=== PATIENT | female | born 1965 | race Caucasian/White ===

== ENCOUNTER → 2017-06-30 | Outpatient (REF) | payer OTHER ==
[2017-06-30 19:11] LABS: LUTEINIZING HORMONE 4.9 mIU/mL
[2017-06-30 19:12] LABS: FOLLICLE STIMULATING HORMONE 6.6 mIU/mL
== END ==
LOC: M LAB REF 17:20
PROVIDERS: ATTEND Family Medicine
DX: N94.6 Dysmenorrhea, unspecified (principal)

== ENCOUNTER → 2017-12-28 | Outpatient (REF) | payer OTHER ==
[2017-12-28 13:50] LABS: LIPASE 72 U/L (73-393)
[2017-12-28 13:50] LABS: AMYLASE 39 U/L (25-115)
== END ==
LOC: M LAB REF 12:45
DX: R10.812 Left upper quadrant abdominal tenderness (principal)
CPT/HCPCS: 82150

== ENCOUNTER → 2018-01-04 | Outpatient (REF) | payer OTHER ==
[2018-01-04 15:38] LABS: APPEARANCE, URINE MANUAL HAZY (CLEAR); COLOR, URINE MANUAL YELLOW (YELLOW)
[2018-01-04 15:40] LABS: BILIRUBIN, URINE MANUAL NEGATIVE (NEGATIVE); BLOOD URINE MANUAL TRACE (NEGATIVE); GLUCOSE, URINE (UA) MANUAL NEGATIVE (NEGATIVE); KETONE, URINE MANUAL NEGATIVE (NEGATIVE); LEUKOCYTE ESTERASE, URINE MAN POSITIVE (NEGATIVE); MICROSCOPIC INDICATED? MAN YES (NO); NITRITE, URINE MANUAL NEGATIVE (NEGATIVE); PROTEIN, URINE MANUAL TRACE mg/dL (NEGATIVE); UROBILINOGEN, URINE MANUAL NORMAL (NORMAL)
== END ==
LOC: M LAB REF 15:05
DX: R31.9 Hematuria, unspecified (principal)
CPT/HCPCS: 81000

== ENCOUNTER → 2018-03-23 | Outpatient (REF) | payer OTHER ==
[2018-03-23 16:26] LABS: FOLLICLE STIMULATING HORMONE 16.5 mIU/mL; LUTEINIZING HORMONE 12.6 mIU/mL
== END ==
LOC: M LABDRAW1 15:48
DX: N91.4 Secondary oligomenorrhea (principal)
CPT/HCPCS: 83001

== ENCOUNTER → 2018-06-12 | Outpatient (CLI) | payer OTHER | LOC: M RAD 15:05 | DX: M79.675 Pain in left toe(s) (principal) | CPT/HCPCS: 73660 ==

== ENCOUNTER 2020-05-23 14:38 | Observation (INO) | payer OTHER ==
[~2020-05-23] VITALS: Ht 162.6 cm; Wt 79.2 kg
--- NOTE | 2020-05-23 15:34 | REPVR ---
PROCEDURE INFORMATION: Exam: CT Head Without Contrast Exam date and time: 05/23/2020 3:17 PM Age: 54 years old Clinical indication: Pain; Headache; Additional info: Syncope TECHNIQUE: Imaging protocol: Computed tomography of the head without contrast. Radiation optimization: All CT scans at this facility use at least one of these dose optimization techniques: automated exposure control; mA and/or kV adjustment per patient size (includes targeted exams where dose is matched to clinical indication); or iterative reconstruction. COMPARISON: No relevant prior studies available. FINDINGS: Brain: No acute intracranial hemorrhage, cerebral edema, or midline shift. Ventricles: No hydrocephalus. Bones/joints: No acute fracture. Sinuses: No acute sinusitis. Mastoid air cells: Visualized mastoid air cells are well aerated. Orbits: The included orbital structures are unremarkable. Soft tissues: A large right parietal scalp hematoma is present. IMPRESSION: No acute intracranial abnormality. Electronically signed by: Clint Singer On 05/23/2020 15:33:49 PM
--- NOTE | 2020-05-23 15:36 | REPVR ---
PROCEDURE INFORMATION: Exam: CT Cervical Spine Without Contrast Exam date and time: 05/23/2020 3:17 PM Age: 54 years old Clinical indication: Neck pain; Additional info: Syncope TECHNIQUE: Imaging protocol: Computed tomography images of the cervical spine without contrast. Radiation optimization: All CT scans at this facility use at least one of these dose optimization techniques: automated exposure control; mA and/or kV adjustment per patient size (includes targeted exams where dose is matched to clinical indication); or iterative reconstruction. COMPARISON: No relevant prior studies available. FINDINGS: Vertebrae: There is mild reversal of the normal cervical lordosis. There is no acute fracture. Discs/Spinal canal/Neural foramina: Mild degenerative changes are present. There is no significant spinal canal stenosis. Mild bilateral neural foraminal narrowing is present at C5-C6 due to uncinate spurring. Soft tissues: Unremarkable. Lungs: Lung apices are normal. IMPRESSION: 1. No acute abnormality. 2. Chronic findings as discussed above. Electronically signed by: Clint Singer On 05/23/2020 15:36:49 PM
[2020-05-23 16:14] LABS: BASO % 0.3 % (0.0-1.0); EOS % 0.3 % (0.0-3.0); HEMATOCRIT 39.7 % (36.0-47.0); HEMOGLOBIN 13.5 g/dl (12.0-15.5); LYMPH % 14.2 % (24.0-44.0); MEAN CORPUSCULAR HEMOGLOBIN 33.2 pg (27.0-33.0); MEAN CORPUSCULAR VOLUME 97.5 fl (80.0-96.0); MONO # 0.5 10^3/uL (0.0-0.8); MONO % 6.9 % (0.0-5.0); NEUTROPHILS # 5.7 10^3/uL (1.5-8.5); NEUTROPHILS % 77.9 % (36.0-66.0); PLATELET COUNT, AUTOMATED 252 10^3/uL (150-450); RED BLOOD COUNT 4.07 10^6/uL (4.00-5.40); WHITE BLOOD COUNT 7.3 10^3/uL (4.0-10.0)
[2020-05-23] MEDS ORDERED: KETOROLAC 30 MG/ML 1ML VIAL IV ONE (16:45)
[2020-05-23 16:51] LABS: ALBUMIN 4.1 GM/DL (3.2-5.2); ALT/SGPT 24 U/L (12-78); BILIRUBIN,TOTAL 0.3 MG/DL (0.2-1.0); BLOOD UREA NITROGEN 12 MG/DL (7-18); CALCIUM LEVEL 9.3 MG/DL (8.5-10.1); CARBON DIOXIDE LEVEL 29 MEQ/L (21-32); CHLORIDE LEVEL 102 MEQ/L (98-107); CPK CREATINE PHOSPHOKINASE 138 U/L (26-192); CREATININE FOR GFR 0.81 MG/DL (0.55-1.30); GLOMERULAR FILTRATION RATE > 60.0 (>51); GLUCOSE, FASTING 90 MG/DL (70-100); MB/CK RELATIVE INDEX 1.45 (< OR =4); POTASSIUM SERUM 4.1 MEQ/L (3.5-5.1); SODIUM LEVEL 135 MEQ/L (136-145); TOTAL PROTEIN 7.7 GM/DL (6.4-8.2); TROPONIN I < 0.02 NG/ML (< 0.10)
[2020-05-23] MEDS ORDERED: EEG (16:55)
[2020-05-23] MEDS ORDERED: ACETAMINOPHEN TAB 650MG DOSE (2X325MG) PO PRN (17:30)
[2020-05-23] MEDS ORDERED: METOCLOPRAMIDE INJ 10MG/2ML VIAL (J2765 PER 1) IV SCH (17:45)
[2020-05-23] MEDS ORDERED: CENT1TAB7 PO (17:49)
[2020-05-23] MEDS ORDERED: LORA-674 PO (17:49)
[2020-05-23] MEDS ORDERED: BUPR300T92 PO (17:49)
[2020-05-23] MEDS ORDERED: [UNRECOGNIZED DRUG - OTHER] PO (17:49)
[2020-05-23] MEDS ORDERED: CITA20TA6 PO (17:49)
[2020-05-23 18:05] LABS: FREE T4 0.87 NG/DL (0.76-1.46)
[2020-05-23] MEDS ORDERED: LABETALOL 100MG/20ML VIAL IV PRN (18:15)
--- NOTE | 2020-05-23 18:47 | HPEPDOC ---
General Date of Admission 05/23/2020 Date of Service: May 23, 2020 Attending Physician: SOHAM CUNNINGHAM MD Chief Complaint The patient is a 54-year-old female admitted with a reason for visit of ycrani. 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 On EMS arrival SBP was in the 180s, she had a massive occipital headache and was dizzy and she was taken to the ED. In the ED, she is dizzy and nauseous when she tries to sit up from the bed, is hypertensive to SBP 180s, tachycardic to low 110s and is reporting a 10/10 occipital headache that improved after the toradol 15mg IV and icepack to where she has a large hematoma. She reports having eaten lunch, drinks lots of water, does not consume alcohol, cigarettes or take medications at baseline or use illicit drugs. She was otherwise feeling perfectly well prior to this incident and recently had her yearly physical with her PCP (Dr. Ascencio) during which she had no issues and her SBP was ~120 per baseline. In the ED, CBC and BMP were wnl, with WBC 7.3, Hgb 13.5, Na 134, K 4.1, Cr 0.81, had NSR on EKG with negative troponin. TSh was mildly elevated to 5.79, CK was 138, LFTs were wnl and she had a CT head with a parietal scalp hematoma without intracranial abnormalities and CT C-spine was also wnl. I spoke with Dr. Oquendo (neuro) given the mixed picture of possible syncope followed by post- concussive seizure vs. primary seizure activity and he advised a spot EEG and otherwise syncope workup. Home Medications Scheduled Bupropion HCl (Bupropion Xl) 300 Mg Tab.er.24h, 300 MG PO DAILY, (Reported) Citalopram Hydrobromide (Citalopram HBr) 20 Mg Tablet, 30 MG PO DAILY, (Reported) Loratadine (Loratadine) 10 Mg Tablet, 10 MG PO DAILY, (Reported) Multivitamin/Iron/Folic Acid (Centrum Women Tablet) 1 Each Tablet, 1 EACH PO DAILY, (Reported) [t Brain Support] , 1 TAB PO DAILY, (Reported) Allergies Coded Allergies: No Known Drug Allergies (Verified Allergy, Unknown, 05/23/20) Past Medical History Medical History None Surgical History None Family History Significant Family History: No pertinent family hx Social History * Smoker: Denies Alcohol: Denies Drugs: denies Recent Travel/Sick Contacts: Denies: Recent travel, Recent sick contacts 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 A-FIB History Current/History of A-Fib/PAF?: No Current PO Anticoag Therapy: No Age/Risk Factor Scoring CHADSVASC: CHADSVASC Response (Comments) Value Age Risk Factor Age < 65 years old 0 Gender Risk Factor Female 1 Hx of CHF No 0 Hx of HTN No 0 Hx of Stroke/TIA/or VTE No 0 Hx of Diabetes No 0 Hx of Vascular Disease No 0 Total 1 Review of Systems Constitutional: Denies: Chills, Fever, Night Sweats Eyes: Denies: Pain, Vision change ENT: Reports: Head Aches (since she fell to the ground when she fainted.) Skin: Reports: Bruising (under (medial) L arm, occipital area hematoma); Denies: Rash, Lesions Pulmonary: Denies: Dyspnea, Cough Cardiovascular: Reports: Palpitations (since arriving to the hospital, feels that her heart is beating fast. no history of this.); Denies: Chest Pain, Orthopnea, Paroxysmal Noc. Dyspnea, Edema, Lt Headedness Gastrointestinal: Reports: Nausea; Denies: Abdominal Pain, Diarrhea, Constipation, Melena, Hematochezia Genitourinary: Denies: Dysuria, Frequency, Incontinence, Retention Hematologic: Denies: Bruising, Bleeding Excessively Endocrine: Denies: Polydipsia, Polyphagia, Polyuria, Heat Intolerance, Cold Intolerance, Other Endocrine Sx Musculoskeletal: Denies: Neck Pain, Back Pain, Joint Pain, Muscle Pain, Spasms Neurological: Reports: Seizures (had witnessed seizure-like activity today shortly after falling and hitting her head); Denies: Weakness, Numbness, Change in speech, Confusion Psych: Reports: Mood Normal; Denies: Depression, Memory Issues Physical Examination General Exam: Positive: Alert, No Acute Distress Eye Exam: Positive: PERRLA, Conjunctiva & lids normal, EOMI; Negative: Sclera icteric ENT Exam: Positive: Mucous membr. moist/pink, Pharynx Normal, Tongue Midline; Negative: Atraumatic (large occipital scalp hematoma with icepack on) Neck Exam: Positive: Supple; Negative: JVD, +2 carotid pulse wo bruit Chest Exam: Positive: Clear to auscultation, Normal air movement Heart Exam: Positive: Rate Normal, Regular Rhythm, Normal S1, Normal S2; Negative: Murmurs, Rubs Telemetry: Positive: Sinus, Tachycardia Abdomen Exam: Positive: Normal bowel sounds, Soft; Negative: Tenderness, Hepatospenomegaly Extremity Exam: Positive: Normal pulses; Negative: Clubbing, Cyanosis, Edema Skin Exam: Positive: Nl turgor and temperature, Other skin issue (bruising on medial L arm and brusing on back of head); Negative: Breakdown, Lesion Neuro Exam: Positive: Normal Speech, Strength at 5/5 X4 ext, Sensation Intact, Cranial Nerves 3-12 NL Psych Exam: Positive: Mental status NL, Mood NL, Oriented x 3 Vital Signs Vital Signs Date Time Temp Pulse Resp B/P (MAP) Pulse Ox O2 Delivery O2 Flow Rate FiO2 05/23/20 15:40 99.1 101 16 155/67 (96) 100 Room Air Laboratory Data Labs 24H Laboratory Tests 2 05/23/20 16:02: Immature Granulocyte % (Auto) 0.4, Neutrophils (%) (Auto) 77.9H, Lymphocytes (%) (Auto) 14.2L, Monocytes (%) (Auto) 6.9H, Eosinophils (%) (Auto) 0.3, Basophils (%) (Auto) 0.3, Neutrophils # (Auto) 5.7, Lymphocytes # (Auto) 1.0L, Monocytes # (Auto) 0.5, Eosinophils # (Auto) 0.0, Basophils # (Auto) 0.0, Nucleated Red Blood Cells % (auto) 0.0, Anion Gap 4L, Glomerular Filtration Rate > 60.0, Calcium Level 9.3, Total Bilirubin 0.3, Aspartate Amino Transf (AST/SGOT) 20, A lanine Aminotransferase (ALT/SGPT) 24, Alkaline Phosphatase 71, Total Creatine Kinase 138, Creatine Kinase MB 2.0, Creatine Kinase MB Relative Index 1.45, Troponin I < 0.02, Total Protein 7.7, Albumin 4.1, Albumin/Globulin Ratio 1.1L, Thyroid Stimulating Hormone (TSH) 5.790H, Free Thyroxine 0.87 CBC/BMP Laboratory Tests 05/23/20 16:02 Assessment/Plan 54 yo healthy woman whose presentation appears to have been after a possible syncopal episdoe followed by post-concussive seizure vs. primary seizure activity without a clear etiology at this time. Possible Syncope: -telemetry -orthostatic vital signs -non ischemic EKG, negative trop, order TTE -mildly elevated TSH, check free t4 -no electrolyte derangements -carotid ultrasound -q4h neuro checks Primary Seizure vs. post-concussive seizure -spot EEG -on speaking with neuro, no AED for first seizure, will monitor -seizure precautions -CT without acute pathology except for scalp hematoma post fall Post concussive tension headache -reglan 10Q6HP -ketoralac 15mg IV Q6HP -tylenol PRN -ice packs Hypertensive urgency post concussion: likely 2/2 pain -labetalol 10mg IV Q4HP for SBP >180 or DBP >100 DVT ppx: TEDs Diet: regular Plan / VTE VTE Prophylaxis Ordered?: Yes SOHAM CUNNINGHAM MD May 23, 2020 18:47
[2020-05-23 21:55] LABS: CK-MB VALUE MASS 2.6 NG/ML (<3.6); CPK CREATINE PHOSPHOKINASE 236 U/L (26-192); TROPONIN I < 0.02 NG/ML (< 0.10)
[2020-05-23] MEDS: KETOROLAC 30 MG/ML 1ML VIAL IV PRN (22:55)
[2020-05-24] VITALS: BP 141/81
--- NOTE | 2020-05-24 00:42 | REPVR ---
PROCEDURE INFORMATION: Exam: US Duplex Bilateral Extracranial Arteries Exam date and time: 05/23/2020 10:35 PM Age: 54 years old Clinical indication: Syncope and collapse TECHNIQUE: Imaging protocol: Real-time Duplex ultrasound scan of the bilateral carotid and vertebral arteries combining hassan scale, color Doppler and spectral waveform analysis. Bilateral exam. COMPARISON: CT Head without contrast 05/23/2020 3:27 PM FINDINGS: Right common carotid artery: Unremarkable. No occlusion or stenosis. Waveforms are normal. Right internal carotid artery: Mild atherosclerotic calcification of the carotid bulb and proximal internal carotid artery. No occlusion or stenosis. Waveforms are normal. Right ICA/CCA ratio: Within normal limits. Right external carotid artery: No stenosis in the origin. Right vertebral artery: Unremarkable. Antegrade flow. Left common carotid artery: Unremarkable. No occlusion or stenosis. Waveforms are normal. Left internal carotid artery: Mild atherosclerotic calcification of the carotid bulb and proximal internal carotid artery. No occlusion or stenosis. Waveforms are normal. Left ICA/CCA ratio: Within normal limits. Left external carotid artery: No stenosis in the origin. Left vertebral artery: Unremarkable. Antegrade flow. IMPRESSION: No hemodynamically significant carotid arterial stenosis. REFERENCES: SRU CRITERIA. The degree of internal carotid artery stenosis is based on criteria defined by the Society of Radiologists in Ultrasound (SRU). Normal is no stenosis. Mild is less than 50% stenosis. Moderate is 50-69% stenosis. Severe is greater than 69% stenosis to near occlusion. Near occlusion is a markedly narrowed lumen. Total occlusion is no detectable patent lumen. Electronically signed by: Nasir Billy On 05/24/2020 00:42:17 AM
[2020-05-24 04:00] VITALS: BP 139/82
[2020-05-24 05:53] LABS: HEMOGLOBIN 13.1 g/dl (12.0-15.5); MEAN CORPUSCULAR HEMOGLOBIN 32.9 pg (27.0-33.0); MEAN CORPUSCULAR HGB CONC 33.6 g/dl (32.0-36.5); PLATELET COUNT, AUTOMATED 235 10^3/uL (150-450); RED BLOOD COUNT 3.98 10^6/uL (4.00-5.40); WHITE BLOOD COUNT 6.5 10^3/uL (4.0-10.0)
[2020-05-24 06:15] LABS: BLOOD UREA NITROGEN 12 MG/DL (7-18); CALCIUM LEVEL 8.2 MG/DL (8.5-10.1); CARBON DIOXIDE LEVEL 28 MEQ/L (21-32); CHLORIDE LEVEL 104 MEQ/L (98-107); GLOMERULAR FILTRATION RATE > 60.0 (>51); GLUCOSE, FASTING 88 MG/DL (70-100); MAGNESIUM LEVEL 2.4 MG/DL (1.8-2.4); POTASSIUM SERUM 3.7 MEQ/L (3.5-5.1); SODIUM LEVEL 137 MEQ/L (136-145)
[2020-05-24 08:00] VITALS: BP 138/88
[2020-05-24] MEDS: KETOROLAC 30 MG/ML 1ML VIAL IV PRN ×2 (09:25→17:35)
[2020-05-24 12:00] VITALS: BP 140/88
[2020-05-24] MEDS: CHLORHEXIDINE GLUCONATE 0.12 % 15ML UDC (PERIDEX ORAL RINSE) SSP SCH ×2 (12:00→15:38)
[2020-05-24] MEDS ORDERED: LISI10TA4 PO (15:56)
[2020-05-24 16:00] VITALS: BP 143/91
[2020-05-24] MEDS ORDERED: PERI12LIQ SSP (16:14)
[2020-05-24] MEDS ORDERED: OXYC1TAB23 PO (18:20)
[2020-05-24] MEDS ORDERED: MECL12.589 PO (18:20)
--- NOTE | 2020-05-24 20:47 | DS.PDOC ---
Discharge Summary General Date of Admission May 23, 2020 at 14:39 Date of Discharge 05/24/20 Discharge Summary PROCEDURES PERFORMED DURING STAY: [None]. ADMITTING DIAGNOSES: Syncope Primary Seizure Post concussive tension headache Hypertensive urgency DISCHARGE DIAGNOSES: Syncope Primary Seizure Post concussive tension headache Hypertensive urgency COMPLICATIONS/CHIEF COMPLAINT: Snycope. 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 On EMS arrival SBP was in the 180s, she had a massive occipital headache and was dizzy and she was taken to the ED. In the ED, she is dizzy and nauseous when she tries to sit up from the bed, is hypertensive to SBP 180s, tachycardic to low 110s and is reporting a 10/10 occipital headache that improved after the toradol 15mg IV and icepack to where she has a large hematoma. She reports having eaten lunch, drinks lots of water, does not consume alcohol, cigarettes or take medications at baseline or use illicit drugs. She was otherwise feeling perfectly well prior to this incident and recently had her yearly physical with her PCP (Dr. Ascencio) during which she had no issues and her SBP was ~120 per baseline. In the ED, CBC and BMP were wnl, with WBC 7.3, Hgb 13.5, Na 134, K 4.1, Cr 0.81, had NSR on EKG with negative troponin. TSh was mildly elevated to 5.79, CK was 138, LFTs were wnl and she had a CT head with a parietal scalp hematoma without intracranial abnormalities and CT C-spine was also wnl. HOSPITAL COURSE: During hospital stay telemetry showed normal sinus rhythm. EEG done, echo done report pending. Recommended follow-up with neurologist to discuss results PT/OT with the patient and found BPPV, recommended vestibular Rehabilitation DISCHARGE MEDICATIONS: Please see below. ALLERGIES: Please see below. PHYSICAL EXAMINATION ON DISCHARGE: VITAL SIGNS: Please see below. Physical Examination General Exam: Positive: Alert, No Acute Distress Eye Exam: Positive: PERRLA, Conjunctiva & lids normal, EOMI; Negative: Sclera icteric ENT Exam: Positive: Mucous membr. moist/pink, Pharynx Normal, Tongue Midline; Negative: Atraumatic (large occipital scalp hematoma with icepack on) Neck Exam: Positive: Supple; Negative: JVD, +2 carotid pulse wo bruit Chest Exam: Positive: Clear to auscultation, Normal air movement Heart Exam: Positive: Rate Normal, Regular Rhythm, Normal S1, Normal S2; Negative: Murmurs, Rubs Telemetry: Positive: Sinus, Tachycardia Abdomen Exam: Positive: Normal bowel sounds, Soft; Negative: Tenderness, Hepatospenomegaly Extremity Exam: Positive: Normal pulses; Negative: Clubbing, Cyanosis, Edema Skin Exam: Positive: Nl turgor and temperature, Other skin issue (bruising on m edial L arm and brusing on back of head); Negative: Breakdown, Lesion Neuro Exam: Positive: Normal Speech, Strength at 5/5 X4 ext, Sensation Intact, Cranial Nerves 3-12 NL Psych Exam: Positive: Mental status NL, Mood NL, Oriented x 3 LABORATORY DATA: Please see below. IMAGING: [facility] NAME: HANNAH SABILLON DATE OF : 1965 BUSINESS NUMBER: [id number] AGE: 54 SEX: F REPORT #: [id number] ROOM: ED TECHNOLOGIST: [id number] DOCTOR: Jovita Nascimento MD Ordered for Date&Time: 05/23/20 1440 cc: [~ rep ct ivnm] Service Date&Time: 05/23/20 1517 This report is in Signed status. Interpretation performed by [facility]. Thank you for having your radiology procedures performed at [facility] RADIOLOGY REPORT Date&Time printed: [~ rep prt dt last] [~ rep prt tm last] Page [address] of [address] [address] RADIOLOGY REPORT This report is in Signed status. Interpretation performed by [facility]. Thank you for having your radiology procedures performed at [facility] RADIOLOGY REPORT Date&Time printed: [~ rep prt dt last] [~ rep prt tm last] Page 1 of 1 PROCEDURE INFORMATION: Exam: CT Head Without Contrast Exam date and time: 05/23/2020 3:17 PM Age: 54 years old Clinical indication: Pain; Headache; Additional info: Syncope TECHNIQUE: Imaging protocol: Computed tomography of the head without contrast. Radiation optimization: All CT scans at this facility use at least one of these dose optimization techniques: automated exposure control; mA and/or kV adjustment per patient size (includes targeted exams where dose is matched to clinical indication); or iterative reconstruction. COMPARISON: No relevant prior studies available. FINDINGS: Brain: No acute intracranial hemorrhage, cerebral edema, or midline shift. Ventricles: No hydrocephalus. Bones/joints: No acute fracture. Sinuses: No acute sinusitis. Mastoid air cells: Visualized mastoid air cells are well aerated. Orbits: The included orbital structures are unremarkable. Soft tissues: A large right parietal scalp hematoma is present. IMPRESSION: No acute intracranial abnormality. Electronically signed by: Clint Singer On 05/23/2020 15:33:49 PM DD: CLINT SINGER MD, MD 05/23/20 1517 DT: JAKE 05/23/20 1533 DS: DIDIER 05/23/20 1533 [~ rep ct labl] PROGNOSIS: Good ACTIVITY: [As tolerated]. DIET: Regular DISPOSITION: 01 Home, Self-Care. ITEMS TO FOLLOWUP ON ON OUTPATIENT: Follow-up with PCP and mayonnaise mixer in 3-5 days Vestibular rehabilitation DISCHARGE CONDITION: [Stable]. TIME SPENT ON DISCHARGE: Greater than 20 minutes. Vital Signs/I&Os Vital Signs Date Time Temp Pulse Resp B/P (MAP) Pulse Ox O2 Delivery O2 Flow Rate FiO2 05/24/20 16:00 98.8 78 18 143/91 (108) 98 Room Air I&O- Last 24 Hours up to 6 AM 05/24/20 06:00 Intake Total 0 ml Output Total 0 ml Balance 0 ml Laboratory Data Labs 24H Laboratory Tests 2 05/23/20 21:17: Total Creatine Kinase 236H, Creatine Kinase MB 2.6, Creatine Kinase MB Relative Index 1.10, Troponin I < 0.02 05/24/20 05:21: Nucleated Red Blood Cells % (auto) 0.0, Anion Gap 5L, Glomerular Filtration Rate > 60.0, Calcium Level 8.2L, Magnesium Level 2.4 CBC/BMP Laboratory Tests 05/24/20 05:21 Discharge Medications Scheduled Bupropion HCl (Bupropion Xl) 300 Mg Tab.er.24h, 300 MG PO DAILY, (Reported) Chlorhexidine Gluconate (Chlorhexidine Gluconate) 473 Ml Mouthwash, 15 ML SSP TID Citalopram Hydrobromide (Citalopram HBr) 20 Mg Tablet, 30 MG PO DAILY, (Re ported) Lisinopril (Lisinopril) 10 Mg Tablet, 1 TAB PO DAILY Loratadine (Loratadine) 10 Mg Tablet, 10 MG PO DAILY, (Reported) Meclizine HCl (Meclizine HCl) 12.5 Mg Tablet, 12.5 MG PO TID for dizziness Multivitamin/Iron/Folic Acid (Centrum Women Tablet) 1 Each Tablet, 1 EACH PO DAILY, (Reported) [t Brain Support] , 1 TAB PO DAILY, (Reported) Scheduled PRN Oxycodone HCl/Acetaminophen (Oxycodone-Acetaminophen 5-325) 1 Each Tablet, 1 TAB PO TIDP PRN for pain Allergies Coded Allergies: No Known Drug Allergies (Verified Allergy, Unknown, 05/23/20) KADEN LARES DO May 24, 2020 20:47
--- NOTE | 2020-05-26 21:07 | ECHO ---
DATE OF PROCEDURE: 05/24/2020 Age: 54 Gender: Female Height: 64 inches Weight: 169 pounds Body surface area: 1.83 m/s Inpatient PCU Room 3228 REFERRING PHYSICIAN: Vivienne Harris MD INDICATION: Syncope. MEASUREMENTS: 2D measurements: RV 3.6 cm LV 4.2 cm Septum 1.0 cm Posterior wall 1.0 cm Aortic root 3.4 cm LA 3.6 cm Left ventricular ejection fraction (LVEF) 65% DOPPLER MEASUREMENTS: AV - 1.11 m/s LVOT 0.83 m/s LVOT diameter 1.9 cm MV E 63, A 50, EA ratio 1.2 Early mitral deceleration time 197 milliseconds E prime medial 6.2 A prime medial 8.9 E prime lateral 8.7 PV- 0.75 m/s Pulmonary artery acceleration time 120 milliseconds PASP 28 mmHg IVC 1.2 cm COMMENTS: Normal sinus rhythm without any intraventricular conduction disturbance. Again technically difficult images to interpret, but some diagnostically useful information was still obtained. M-mode and 2 dimensional echocardiography was performed with pulse, continuation wave, color flow and tissue Doppler studies Normal left ventricular size, wall thickness and wall motion. Normal left atrial size and Doppler assessment of LV diastolic function and estimated mean left atrial pressure. Normal right heart chamber sizes and motion and estimated pulmonary arterial pressure. Normal IVC size and collapse against an elevated central venous pressure. Normal aortic dimensions. Normal appearing and functioning aortic valve. Normal appearing mitral valvular apparatus and leaflet excursion with no posterior systolic buckling and only very mild insufficiency (physiologic). Normal appearing tricuspid valve with very mild insufficiency (physiologic). No apparent cardiac mass or pericardial effusion. Unable to identify a structural or functional abnormality to account for the patient's syncopal spell. [facility]
--- NOTE | 2020-05-29 20:50 | ECGEPIP ---
[facility] - ED Test Date: 2020-05-23 Pat Name: HANNAH SABILLON Department: Room: - Gender: Female Lead Material Handler: margaret : 1965 Requested By: Jovita Nascimento Order Number: [id number] Reading MD: Edin Kiser Measurements Intervals [place] Rate: 101 P: 52 ND: 143 QRS: 43 QRSD: 80 T: 56 QT: 349 QTc: 453 Interpretive Statements SINUS TACHYCARDIA LEFT ATRIAL ENLARGEMENT NSTTW CHANGES
--- NOTE | 2020-05-30 09:06 | EEG ---
DATE: 05/24/2020 REFERRING PHYSICIAN: Dr. Vivienne Harris DIAGNOSIS: Seizure EEG #: [id number] HISTORY: The patient is a 54-year-old woman who was admitted at [facility] due to possible seizure. This electroencephalogram (EEG) was done to rule out epileptic potential. She is currently taking Reglan, Tylenol, Ketorolac, labetalol. TECHNICAL DESCRIPTION: This digital electroencephalogram (EEG) was recorded by 21 scalp, ear, two electrodes and was reviewed in bipolar and referential montages following a reformatting in 10-20 international electrode placement system. INTERPRETATION: The patient was noted to be in awake and drowsy states during this electroencephalogram (EEG). Resting and awake background rhythm consisted of well-formed posterior dominant rhythm with anterior-posterior gradient comprising of 10 Hz alpha activity measuring 15-40 microvolts in amplitude, which was symmetric and reactive to eye opening. Attenuation of posterior dominant rhythm was seen during transition to drowsiness. Stage 1 and 2 sleep was reviewed and was symmetric bilaterally. Hypoventilation and photic stimulation remained unremarkable. No focal, lateralizing or epileptiform abnormalities were seen. No relevant clinical activity was noted. CONCLUSION: Electroencephalogram (EEG) in awake, drowsy states, stage 1 and 2 sleep is within normal limits. MTDD
--- NOTE | 2020-06-01 10:23 | ECGEPIP ---
[facility] - ED Test Date: 2020-05-23 Pat Name: HANNAH SABILLON Department: Room: [place] [address] Gender: Female Ekg Tech: amauri : 1965 Requested By: Jovita Nascimento Order Number: [id number] Reading MD: Edin Kiser Measurements Intervals [place] Rate: 108 P: 39 TX: 149 QRS: 45 QRSD: 96 T: 30 QT: 368 QTc: 494 Interpretive Statements SINUS TACHYCARDIA MINIMAL ST DEPRESSION ABNORMAL RHYTHM ECG PRWP SEE SCANNED DOWNTIME REPORT.
== END 2020-05-24 18:29 | disposition home or self-care (01) ==
LOC: EDBD 14:38 → M ED 14:38 → M ED INP 14:39 → ENRESERV 19:08 → M PCU 21:02
PROVIDERS: ADMIT Internal Medicine; ATTEND Internal Medicine
DX: R55 Syncope and collapse (principal); R56.9 Unspecified convulsions; G44.309 Post-traumatic headache, unspecified, not intractable; I16.0 Hypertensive urgency; H81.10 Benign paroxysmal vertigo, unspecified ear; Z79.899 Other long term (current) drug therapy
CPT/HCPCS: 36415; 70450; 72125; 80048; 80053; 82550; 82553; 83735; 84439; 84443; 84484; 85025; 85027; 93005; 93041; 93306; 93880; 94760; 95819; 96374; 96376; 97112; 97116; 97161; 99285; J1885

== ENCOUNTER → 2021-07-11 | Outpatient (CLI) | payer OTHER ==
[~2021-07-11] MED LIST: BUPR300T92 PO; CENT1TAB7 PO; CITA20TA6 PO; EEG; LISI10TA22 PO; LORA-674 PO; MECL-136 PO; OXYC1TAB23 PO; PERI12LIQ SSP; [UNRECOGNIZED DRUG - OTHER] PO
[2021-07-11 16:52] LABS: FOLLICLE STIMULATING HORMONE 130.5 mIU/mL; LUTEINIZING HORMONE 50.9 mIU/mL
== END ==
LOC: M WUC 14:07
PROVIDERS: ATTEND Obstetrics & Gynecology
DX: N91.4 Secondary oligomenorrhea (principal)

== ENCOUNTER → 2023-03-25 | Outpatient (REF) | payer OTHER | LOC: M SFHCWAGY 10:24 | PROVIDERS: ATTEND Nurse Practitioner Family | DX: Z12.4 Encounter for screening for malignant neoplasm of cervix (principal) | CPT/HCPCS: 87624; G0123 ==

== ENCOUNTER → 2024-04-14 | Outpatient (REF) | payer OTHER ==
[~2024-04-14] MED LIST changes: +BUPR-597 PO; -BUPR300T92 PO; +LORA-1041 PO; -LORA-674 PO
[2024-04-19 12:33] LABS: HPV APTIMA Not Detected (Not Detected)
== END ==
LOC: M SFHCWAGY 09:36
PROVIDERS: ATTEND Nurse Practitioner Family
DX: Z12.4 Encounter for screening for malignant neoplasm of cervix (principal); Z77.9 Other contact with and (suspected) exposures hazardous to health
CPT/HCPCS: 87624; G0123

== ENCOUNTER → 2024-12-29 | Outpatient (CLI) | payer OTHER | LOC: M RAD 17:25 | PROVIDERS: ATTEND Student in an Organized Health Care Education/Training Program | DX: M79.671 Pain in right foot (principal) ==